=== PATIENT | female | born 1985 | race Asian ===

== ENCOUNTER 2017-02-26 00:21 | Emergency (ER) | payer SELFPAY ==
[~2017-02-26] VITALS: Ht 167.6 cm; Wt 54.4 kg
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
[2017-02-26] MEDS ORDERED: IBUPROFEN 400 MG TABLET ONE (00:35)
--- NOTE | 2017-02-26 00:35 | NUR ---
MEDICATED PATIENT ORDERED BY DR CASILLAS.
--- NOTE | 2017-02-26 00:41 | NUR ---
PATIENT TAKEN TO RADIOLOGY.
--- NOTE | 2017-02-26 00:50 | NUR ---
PATIENT BACK FROM RADIOLOGY.
[2017-02-26] MEDS ORDERED: IBUPROFEN 400 MG TABLET PO ONE (01:00)
--- NOTE | 2017-02-26 01:38 | NUR ---
Patient discharged to home in stable condition. Written and verbal after care instructions given. Patient verbalizes understanding of instruction. Patient is ambulatory with steady gait, accompanied by family. no further complaints.
[2017-02-26 01:39] VITALS: BP 110/74
== END 2017-02-26 01:39 | disposition home or self-care (01) ==
LOC: ER 00:24
DX: S13.4XXA Sprain of ligaments of cervical spine, initial encounter (principal); S20.219A Contusion of unspecified front wall of thorax, initial encounter; V43.62XA Car passenger injured in collision with other type car in traffic accident, initial encounter; Y93.89 Activity, other specified; Y92.410 Unspecified street and highway as the place of occurrence of the external cause; Y99.8 Other external cause status
CPT/HCPCS: 71010; 72040; 99284; A4606; Z7610; A6402